=== PATIENT | male | born 1995 | race Hispanic/Latino ===

== ENCOUNTER 2019-02-05 02:27 | Emergency (ER) | payer SELFPAY ==
[2019-02-05 03:19] LABS: #Basophils 0.1 thou/uL (0.0-0.2); #Monocytes 0.6 thou/uL (0.11-0.59); #Neutrophils 10.9 thou/uL (1.40-6.50); %Basophils 0.4 % (0.0-1.0); %Eosinophils 0.2 % (0.0-10.0); %Lymphocytes 8.1 % (21.0-51.0); %Monocytes 4.8 % (0.0-10.0); %Neutrophils 86.5 % (42.0-75.0); Hemoglobin 16.5 g/dL (14.0-18.0); Mean Corpuscular Hemoglobin 29.5 pg (27.0-31.0); Mean Corpuscular Volume 89.3 fL (78.0-98.0); Mean Platelet Volume 7.4 fL (7.4-10.4); Platelet Count 217 thou/uL (130-400); RBC Distribution Width 11.3 % (11.5-14.5); Red Blood Cell (RBC) Count 5.58 mill/uL (4.70-6.10); White Blood Cell (WBC) Count 12.6 thou/uL (4.8-10.8)
[2019-02-05 03:30] LABS: Prothrombin Time 13.2 SEC (12.0-14.7)
[2019-02-05 03:41] LABS: ALT (SGPT) 29 U/L (8-55); AST (SGOT) 45 U/L (5-34); Albumin 4.6 g/dL (3.5-5.0); Alcohol 201 mg/dL (Less than 10); Alkaline Phosphatase 100 U/L (40-150); Anion Gap 15 mmol/L (10-20); BUN (Urea Nitrogen) 8 mg/dL (8.9-20.6); Bilirubin, Total 0.5 mg/dL (0.2-1.2); Calc. Creatinine Clearance 0 mL/min (70-130); Calcium 9.2 mg/dL (7.8-10.44); Carbon Dioxide 26 mmol/L (22-29); Chloride 106 mmol/L (98-107); Estimated GFR-MDRD Greater than 90; Glucose 96 mg/dL (70-105); Potassium 3.8 mmol/L (3.5-5.1); Protein, Total 7.6 g/dL (6.0-8.3); Sodium 143 mmol/L (136-145)
--- NOTE | 2019-02-05 06:31 | CT ---
CT HEAD WITHOUT CONTRAST: INDICATIONS: Injury. Pain. FINDINGS: There is no evidence of ventriculomegaly, mass effect, midline shift, or acute intracranial hemorrhag e. There is prominent left scalp edema, which extends into the left facial soft tissues. IMPRESSION: No acute intracranial hemorrhage or mass effect. POS: [facility]
--- NOTE | 2019-02-05 06:33 | CT ---
CT CERVICAL SPINE WITHOUT CONTRAST: INDICATIONS: Neck injury. pain. FINDINGS: There is motion distortion, which obscures the C7 level, as well as the alignment of the cervicothora cic junction. Otherwise, the vertebral body heights and alignment of the cervical spine are maintain ed. The craniocervical junction is intact. IMPRESSION: Obscuration of the lower cervical spine/cervicothoracic junction due to motion. This could obscure u nderlying pathology. Follow-up imaging may be obtained with attention to this region, when the patie nt can maintain a stable position. POS: [facility]
--- NOTE | 2019-02-05 06:42 | CT ---
CT FACIAL BONES WITHOUT CONTRAST: INDICATIONS: Posttraumatic pain. FINDINGS: There is prominent left facial soft tissue edema/contusion. The orbital gilbert are intact. There is no retrobulbar hematoma or mass effect. No displaced nasal bone fracture. Zygomatic arches are main tained bilaterally, and there is no evidence of fracture of the pterygoid plates. No posttraumatic d islocation of either temporomandibular joint. The mandible is intact. No acute fluid level of the p aranasal sinuses. There is mild paranasal sinus mucosal thickening. No evidence of mastoid effusion . IMPRESSION: Prominent left facial edema/contusion. No underlying displaced facial fracture. POS: [facility]
--- NOTE | 2019-02-05 06:45 | CT ---
CT CHEST WITH CONTRAST: CT ABDOMEN AND PELVIS WITH CONTRAST: CT THORACIC SPINE WITH CONTRAST: CT LUMBAR SPINE WITH CONTRAST: INDICATIONS: Posttraumatic injury. TECHNIQUE: Three-dimensional volume rendering performed. FINDINGS: There is no pulmonary parenchymal consolidation, pleural effusion or pneumothorax. The thoracoabdomi nal aorta is intact. No acute pathology of the solid abdominal organs. No pneumoperitoneum or hemop eritoneum identified. There is moderate distention of the unopacified urinary bladder. The bowel is incompletely evaluated without enteric contrast. There is moderate anterior wedge compression defor mity of T7 and mild anterior compression deformity of T8. Mild superior endplate irregularity is als o seen at T9. No significant subluxation is seen, associated with these findings. IMPRESSION: Compression deformities of T7, T8, and T9. Findings may be further assessed with dedicated thoracic spine MRI to evaluate for the presence of marrow edema, as clinically necessary. POS: [facility]
--- NOTE | 2019-02-05 07:54 | CT ---
CT CERVICAL SPINE WITHOUT CONTRAST: HISTORY: Head/facial trauma with neck pain. COMPARISON: None. TECHNIQUE: Multiple contiguous axial images were obtained in a CT of the cervical spine without contrast. Sagit keira and coronal reformats were performed. FINDINGS: The vertebral bodies and intervertebral disks demonstrate normal height and alignment without fractur e or subluxation. No degenerative changes are seen. No prevertebral soft tissue swelling is seen. The posterior facets are well aligned. Normal alignment of the skull base with the cervical spine is seen. IMPRESSION: No evidence of acute osseous abnormality of the cervical spine. POS: [facility]
[2019-02-05] MEDS ORDERED: Iopamidol 370 76% 100 ML VIAL ONE (10:22)
== END 2019-02-05 08:25 | disposition short-term general hospital (02) ==
LOC: MADERS 02:27
DX: S22.069A Unspecified fracture of T7-T8 vertebra, initial encounter for closed fracture (principal); S22.079A Unspecified fracture of T9-T10 vertebra, initial encounter for closed fracture; S05.12XA Contusion of eyeball and orbital tissues, left eye, initial encounter; F17.210 Nicotine dependence, cigarettes, uncomplicated; V29.9XXA Motorcycle rider (driver) (passenger) injured in unspecified traffic accident, initial encounter
CPT/HCPCS: 70450; 70486; 71260; 72125; 74177; 80053; 80307; 83605; 85025; 85610; Q9967

== ENCOUNTER 2020-11-02 17:04 | Emergency (ER) | payer OTHER, SELFPAY | END 2020-11-02 18:12 | disposition home or self-care (01) | LOC: MADERS 17:04 | DX: S93.402A Sprain of unspecified ligament of left ankle, initial encounter (principal); F17.210 Nicotine dependence, cigarettes, uncomplicated; W19.XXXA Unspecified fall, initial encounter ==